=== PATIENT | female | born 1950 | race Two or more races ===

== ENCOUNTER 2019-01-26 15:17 | Emergency (ER) | payer OTHER ==
[~2019-01-26] VITALS: Ht 157.5 cm; Wt 63.5 kg
[~2019-01-26 15:17] MED LIST: ANALPRAM HC 2.530 GM RC; PERCOCET 5/3251 TAB PO; SKELAXIN800 MG PO; SYNTHROID; VYTORIN 10-101 EACH PO
== END 2019-01-26 15:46 | disposition home or self-care (01) ==
LOC: ER 15:17
DX: K58.9 Irritable bowel syndrome, unspecified (principal)

== ENCOUNTER 2019-12-13 13:22 | Outpatient (CLI) | payer OTHER | END 2019-12-15 09:18 | disposition home or self-care (01) | LOC: TOM 13:22 | DX: K57.32 Diverticulitis of large intestine without perforation or abscess without bleeding (principal); R10.32 Left lower quadrant pain ==

== ENCOUNTER → 2022-10-29 | Outpatient (CLI) | payer OTHER | END | disposition home or self-care (01) | LOC: TOM 10:44 | PROVIDERS: ATTEND Ophthalmology | DX: H05.222 Edema of left orbit (principal) ==

== ENCOUNTER 2023-08-23 12:57 | Emergency (ER) | payer OTHER ==
[~2023-08-23] VITALS: Ht 157.5 cm; Wt 68.0 kg
[2023-08-23] MEDS ORDERED: TOPROL XL25 M1 (13:34)
[2023-08-23] MEDS ORDERED: SYNTHROID50 MCG (13:35)
[2023-08-23] MEDS ORDERED: EZETIMIBE-SIMV1 EAC1 (13:35)
[2023-08-23] MEDS ORDERED: KAPSPARGO SPRIN25 MG (13:35)
== END 2023-08-23 17:13 | disposition home or self-care (01) ==
LOC: ER 12:57
DX: J06.9 Acute upper respiratory infection, unspecified (principal)
CPT/HCPCS: 93005; 96372; 99284; J1885

== ENCOUNTER 2023-12-29 14:00 | Outpatient (CLI) | payer OTHER ==
[~2023-12-29 14:00] MED LIST changes: +EZETIMIBE-SIMV1 EAC1; +KAPSPARGO SPRIN25 MG; +SYNTHROID50 MCG; +TOPROL XL25 M1
== END 2023-12-29 14:14 | disposition home or self-care (01) ==
LOC: RAD 14:00
PROVIDERS: ATTEND General Practice
DX: M25.562 Pain in left knee (principal)